=== PATIENT | female | born 1995 | race Caucasian/White ===

== ENCOUNTER 2018-09-14 10:35 | Outpatient (CLI) | payer BC ==
[~2018-09-14] VITALS: Ht 160 cm; Wt 72.3 kg
[2018-09-14 10:55] VITALS: Ht 160 cm; Wt 72.3 kg
[2018-09-14 10:56] VITALS: BP 139/87; PULSE 110; RESP 20
[2018-09-14] MEDS ORDERED: MTF1000T PO (11:59)
[2018-09-14] MEDS ORDERED: FERR134T PO (11:59)
[2018-09-14] MEDS ORDERED: PREN-93 PO (11:59)
--- NOTE | 2018-09-14 13:30 | TRIAGE ---
OB Triage Datetime Report Generated by CPN: 09/14/2018 13:29 Datetime: 09/14/2018 11:41 Bedside Blood Glucose: 114 Datetime: 09/14/2018 11:34 Stage of : OB Triage Assessment Type: Triage Maternal Assessment Level of Consciousness: Fully Conscious DTR's/Clonus: DTRs 2+; No Clonus Headache: Denies Blurred Vision: No Respiratory Effort: Unlabored; Regular Rhythm; Equal Expansion Breath Sounds, Left: Clear and Equal Breath Sounds, Right: Clear and Equal Nausea/Vomiting: Denies RUQ Epigastric Pain: Denies Facial Edema: None Temperature Route: Axillary Fall Risk Assessment History of Falling: (0) No Secondary Diagnosis: (0) No Ambulatory Aid: (0) Bedrest/Nurse Assist IV Therapy: (0) No Gait: (0) Normal/Bedrest/Immobile Mental Status: (0) Oriented to Own Ability Fall Score: 0 Fall Risk Score Definition: No Risk: No action required Labor Evaluation Monitor Mode: External Heart Rate FHR Baseline Rate: 125 Monitor Mode: External US Pain Assessment Pain Scale: 5 Pain Presence: Intermittent Pain Type: Cramping Pain Location: Abdomen Pain Goal: 5 Pain Relief Measures: Comfort Measures Vaginal Exam Dilatation (cms): 2.0 Effacement (%): 30 Station: -2 Exam By: s badgett rn Membrane Status: Intact Nitrazine: Positive Datetime: 09/14/2018 11:07 EGA: 37.2 Datetime: 09/14/2018 10:28 Time of Arrival: 09/14/2018 10:28 Arrived By: Ambulatory Arrived From: Home Chief Complaint: labor Movement: Present Contractions: Regular Time Contractions Began: 09/14/2018 08:00 Rupture of Membranes: Unsure Vaginal Bleeding: Normal Show Vaginal Discharge: Present Recent Sexual Intercouse: Denies Abdominal Trauma: Not Applicable Patient Complaints: Contractions Additional Patient Complaints: leaking Time Provider Notified: 09/14/2018 11:15 Provider Notified: luz maria Initial Plan: nst, v/e, call ,
--- NOTE | 2018-09-14 17:05 | PN ---
Triage Information Date/Time 09/14/1804/23/1700 Reason for visit: Uterine contractions Weeks of Gestation 37w2d /Para primigravida Diabetes: gestational Diabetes management: oral agent Additional information on metformin BID last nite BS 120 Objective Vital Signs Date Temp Pulse Resp B/P (MAP) Pulse Ox O2 O2 Flow FiO2 Time Delivery Rate 09/14/18 97.4 110 20 139/87 Room Air 10:56 (104) Heart Rate: 120's Heart Rate Comments CAT I tracing Exam post no change ROM plus neg Results/Medications Results 24 hrs Laboratory Tests Test 09/14/18 11:00 09/14/18 11:02 09/14/18 11:40 Urine Color YELLOW Urine Clarity SLIGHTLY CLOUDY A Urine pH 5.0 Urine Specific [place] 1.026 Urine Ketones NEGATIVE Urine Nitrite NEGATIVE Urine Bilirubin NEGATIVE Urine Urobilinogen NEGATIVE Urine Leukocyte Esterase NEGATIVE Urine Microscopic RBC 3 Urine Microscopic WBC 18 H Urine Squamous FEW Epithelial Cells Urine Bacteria FEW A Urine Mucus FEW A Urine Hemoglobin NEGATIVE Urine Glucose NEGATIVE Urine Total Protein 3+ H Urine Opiates Screen Negative Urine Barbiturates Negative Urine Amphetamines Screen Negative Urine Benzodiazepines Screen Negative Urine Cocaine Screen Negative Urine Cannabinoids Negative Bedside Glucose 114 Imaging Results BPP 8 LIANET 14.3 EFW 3211gm 62.3% Disposition: Discharge Assessment/Plan IUP 37w2d early labor plan RTH prn with routine labor instructions SHAN VÁSQUEZ MD September 14, 2018 17:05
== END 2018-09-14 13:15 | disposition home or self-care (01) ==
LOC: OBT 10:35 → L-D 10:36 → OBT 13:15
PROVIDERS: ATTEND Obstetrics & Gynecology
DX: O60.03 Preterm labor without delivery, third trimester (principal); Z3A.37 37 weeks gestation of pregnancy
CPT/HCPCS: 76815; 76818; 80307; 81001; 82962

== ENCOUNTER 2018-09-14 20:43 | Inpatient (IN) | payer BC ==
[~2018-09-14] VITALS: Ht 160 cm; Wt 72.3 kg
[~2018-09-14 20:43] MED LIST: FERR134T PO; MTF1000T PO; PREN-93 PO
[2018-09-14 20:57] VITALS: Ht 160 cm; Wt 72.3 kg
[2018-09-14] MEDS ORDERED: OXYTOCIN 30 UNITS/LR 500 ML IV PRN (21:30)
[2018-09-14] MEDS ORDERED: CARBOPROST 250 MCG INJ IM PRN (21:30)
[2018-09-14] MEDS ORDERED: MISOPROSTOL 200 MCG TAB PR PRN (21:30)
[2018-09-14] MEDS ORDERED: LIDOCAINE 1% (MPF) 30 ML INJ INJ PRN (21:30)
[2018-09-14] MEDS ORDERED: MINERAL OIL LIGHT 10 ML VIAL TOP PRN (21:30)
[2018-09-14] MEDS ORDERED: IBUPROFEN 600 MG TAB PO PRN (21:30)
[2018-09-14] MEDS ORDERED: OXYTOCIN 30 UNITS/LR 500 ML IV SCH ×3 (21:30)
[2018-09-14] MEDS ORDERED: METHYLERGONOVINE 0.2 MG INJ IM PRN (21:30)
[2018-09-14] MEDS ORDERED: GLUCOSE GEL 15 GRAM TUBE BUCCAL PRN (22:00)
[2018-09-14] MEDS ORDERED: GLUCAGON 1 MG INJ IM PRN (22:00)
[2018-09-14] MEDS ORDERED: DEXTROSE 50% 50 ML SYRINGE IV PRN ×2 (22:00)
[2018-09-14] MEDS ORDERED: GLUCOSE GEL 15 GRAM TUBE PO PRN ×2 (22:00)
[2018-09-14] MEDS: LACTATED RINGER'S 1,000 ML IV SCH ×2 (22:07→23:29)
--- NOTE | 2018-09-14 22:50 | PREAC ---
Date/Time of Note Date/Time of Note DATE: 09/14/18 TIME: 22:47 Anesthesia Eval and Record Evaluation Time Pre-Procedure Interview DATE: 09/14/18 TIME: 22:47 Age 23 Sex female NPO: 8 hrs Preoperative diagnosis intrauterine Planned procedure labor epidural Past Medical History Past Medical History: Includes : : (1), Para: (0), Gestational age: (37.2), Gestational di abetes Surgery & Anesthesia Issues No known issue Meds Anticoagulation: No Beta Ryan within 24 hr: No Reason Beta Ryan not given: Pt. not on B-Ryan Reported Medications Metformin* (Glucophage*) 1,000 Mg Tablet, 1000 MG PO BID PRN for elevated sugars, #60 TAB 09/14/18 Ferrous Sulfate (Iron) 134 Mg Tablet, 134 MG PO BID, TAB 09/14/18 Vit No.124/Iron/FA ( Vitamin Tablet) 1 Each Tablet, 1 EACH PO BID, TAB 09/14/18 Current Medications Lactated Ringer's 1,000 ml @ 125 mls/hr Q8H IV Last administered on 09/14/18at 22:07; Admin Dose 125 MLS/HR; Start 09/14/18 at 21:20 Lidocaine (Xylocaine 1% (Mpf)) 30 ml ONCE PRN INJ .EPISIOTOMY; Start 09/14/18 at 21:30 Oxytocin/Lactated Ringer's 500 ml @ 500 mls/hr ONCE POST IV ; Start 09/14/18 at 21:30 Oxytocin/Lactated Ringer's 500 ml @ 125 mls/hr POST IV ; Start 09/14/18 at 21:30 Ibuprofen (Motrin) 600 mg ONCE PRN PO .PAIN 1-5; Start 09/14/18 at 21:30 Oxytocin/Lactated Ringer's 500 ml @ 0 mls/hr ONCE PRN IV .VAGINAL BLEEDING; Start 09/14/18 at 21:30 Methylergonovine Maleate (Methergine) 0.2 mg ONCE PRN IM .VAGINAL BLEEDING; Start 09/14/18 at 21:30 Carboprost Tromethamine (Hemabate) 250 mcg ONCE PRN IM .VAGINAL BLEEDING; Start 09/14/18 at 21:30 Misoprostol (Cytotec) 1,000 mcg ONCE PRN DC .VAGINAL BLEEDING; Start 09/14/18 at 21:30 Oxytocin/Lactated Ringer's 500 ml @ 0 mls/hr FOR AUGMENTATION IV ; Start 09/14/18 at 21:30 Mineral Oil (Muri-Lube) 10 ml ONCE PRN TOP vaginal delivery; Start 09/14/18 at 21:30; Stop 09/14/18 at 23:59 Insulin Aspart (Novolog Insulin Pen) NOVOLOG *MILD* ALGORI... Q4 SC ; Start 09/15/18 at 01:00 Miscellaneous Information 1 ea NOTE XX ; Start 09/14/18 at 22:00 Glucose (Glutose) 15 gm Q15M PRN PO DECREASED GLUCOSE; Start 09/14/18 at 22:00 Glucose (Glutose) 22.5 gm Q15M PRN PO DECREASED GLUCOSE; Start 09/14/18 at 22:00 Dextrose (D50w Syringe) 25 ml Q15M PRN IV DECREASED GLUCOSE; Start 09/14/18 at 22:00 Dextrose (D50w Syringe) 50 ml Q15M PRN IV DECREASED GLUCOSE; Start 09/14/18 at 22:00 Glucagon (Glucagen) 1 mg Q15M PRN IM DECREASED GLUCOSE; Start 09/14/18 at 22:00 Glucose (Glutose) 15 gm Q15M PRN BUCCAL DECREASED GLUCOSE; Start 09/14/18 at 22:00 Meds reviewed: Yes Allergies Coded Allergies: No Known Allergy (Unverified , 09/14/18) Allergies Reviewed: Yes Labs/Studies Labs Reviewed: Reviewed by anesthesiologist (pending and will be reviewed ) test: N/A Pre-procedure Exam Airway: Adequate mouth opening, Adequate thyromental dist Mallampati: Mallampati II Teeth: Normal Lung: Normal Heart: Normal ASA Physical Status ASA physical status: 2 Emergency: None Planned Anesthetic Neuraxial: Epidural Planned Pain Management Epidural, Parenteral pain med Pre-operative Attestations Prior to commencing anesthesia and surgery, the patient was re-evaluated, there was verification of: *The patient's identity *The results of appropriate recent lab work and preoperative vital signs *The above evaluation not changing prior to induction *Anesthetic plan, risk benefits, alternative and complications discussed with patient/family; questions answered; patient/family understands, accepts and wi shes to proceed. MILAGROS COLES MD September 14, 2018 22:50
[2018-09-14] MEDS ORDERED: FENTAnyl 2MCG/ML-ROPIV 0.2% 100 ML ONE (23:33)
[2018-09-15] VITALS (13 sets, daily range): BP systolic 121–137; BP diastolic 73–95; PULSE 83–94; RESP 16–24
--- NOTE | 2018-09-15 00:12 | PAC ---
Date/Time of Note Date/Time of Note DATE: 09/15/18 TIME: 00:12 Post-Anesthesia Notes Post-Anesthesia Note Activity: WNL Respiratory function: WNL Cardiovascular function: WNL Mental status: Baseline Pain reasonably controlled: Yes Hydration appropriate: Yes Nausea/Vomiting absent: Yes Comments BP: 128/78 HR: 82 RR: 16 T: 98 SaO2: 99% MILAGROS COLES MD September 15, 2018 00:12
[2018-09-15] MEDS ORDERED: INSULIN ASPART [NOVOLOG] 3 ML PEN SC SCH ×2 (01:00→18:05)
[2018-09-15] MEDS ORDERED: DEXTROSE 5%-LR 1,000 ML IV SCH (02:55)
[2018-09-15] MEDS ORDERED: LACTATED RINGER'S 1,000 ML IV SCH (02:55)
[2018-09-15] MEDS ORDERED: MINERAL OIL LIGHT 10 ML VIAL TOP ONE (06:00)
--- NOTE | 2018-09-15 06:07 | TRIAGE ---
OB Triage Datetime Report Generated by CPN: 09/15/2018 06:07 Datetime: 09/15/2018 05:18 Stage of : Labor Dilatation (cms): 10.0 Effacement (%): 100 Station: 0 Exam By: Datetime: 09/15/2018 05:15 Stage of : Labor Datetime: 09/15/2018 04:58 Stage of : Labor Frequency: 2-4.5 Monitor Mode: External Duration (sec)2399: 60-100 Pattern: Normal: <= 5 Contractions in 10 Minutes Resting Tone Pray: Relaxed FHR Baseline Rate: 135 Monitor Mode: External US Variability: Moderate 6-25 bpm Accelerations: 15X15 Decelerations: Early; Variable Category: Category I Datetime: 09/15/2018 04:30 Stage of : Labor Frequency: 2-4.5 Monitor Mode: External Duration (sec)2399: 60-100 Pattern: Normal: <= 5 Contractions in 10 Minutes Resting Tone Pray: Relaxed FHR Baseline Rate: 145 Monitor Mode: External US Variability: Moderate 6-25 bpm Accelerations: 15X15 Decelerations: Early; Variable Category: Category II Datetime: 09/15/2018 04:15 Dilatation (cms): 9.0 Effacement (%): 100 Station: -1 Exam By: FLOYD Membrane Status: Ruptured Membranes Rupture Method: Spontaneous Amniotic Fluid Color: Clear Amniotic Fluid Amount: Moderate Amniotic Fluid Odor: Foul Datetime: 09/15/2018 04:00 Stage of : Labor Frequency: 2-4 Monitor Mode: External Duration (sec)2399: 60-80 Pattern: Normal: <= 5 Contractions in 10 Minutes FHR Baseline Rate: 130 Monitor Mode: External US Variability: Moderate 6-25 bpm Accelerations: 15X15 Decelerations: Early Category: Category I Datetime: 09/15/2018 03:30 Frequency: 2-3 Monitor Mode: External Duration (sec)2399: 60-80 Quality: Moderate Pattern: Normal: <= 5 Contractions in 10 Minutes Resting Tone Pray: Relaxed FHR Baseline Rate: 125 Monitor Mode: External US Variability: Moderate 6-25 bpm Accelerations: 15X15 Decelerations: None Category: Category I Datetime: 09/15/2018 03:00 Frequency: 3-4 Monitor Mode: External Duration (sec)2399: 50-90 Quality: Moderate Pattern: Normal: <= 5 Contractions in 10 Minutes Resting Tone Pray: Relaxed FHR Baseline Rate: 130 Monitor Mode: External US FHR Baseline Changes: No Baseline Change Variability: Moderate 6-25 bpm Accelerations: 15X15 Decelerations: None Category: Category I Datetime: 09/15/2018 02:59 Bedside Blood Glucose: 68 Datetime: 09/15/2018 02:30 Frequency: 2-4 Monitor Mode: External Duration (sec)2399: 60-90 Quality: Moderate Pattern: Normal: <= 5 Contractions in 10 Minutes Resting Tone Pray: Relaxed FHR Baseline Rate: 125 Monitor Mode: External US Variability: Moderate 6-25 bpm Accelerations: 15X15 Decelerations: None Category: Category I Datetime: 09/15/2018 02:00 Frequency: 2-4 Monitor Mode: External Duration (sec)2399: 60-90 Quality: Moderate Pattern: Normal: <= 5 Contractions in 10 Minutes Resting Tone Pray: Relaxed FHR Baseline Rate: 125 Monitor Mode: External US Variability: Moderate 6-25 bpm Accelerations: 15X15 Decelerations: None Category: Category I Datetime: 09/15/2018 01:30 Frequency: 2-5 Monitor Mode: External Duration (sec)2399: 60-80 Quality: Moderate Pattern: Normal: <= 5 Contractions in 10 Minutes Resting Tone Pray: Relaxed FHR Baseline Rate: 125 Monitor Mode: External US Variability: Moderate 6-25 bpm Accelerations: 15X15 Decelerations: None Category: Category I Datetime: 09/15/2018 01:00 Frequency: 2-5 Monitor Mode: External Duration (sec)2399: 60-90 Quality: Moderate Pattern: Normal: <= 5 Contractions in 10 Minutes Resting Tone Pray: Relaxed FHR Baseline Rate: 120 Monitor Mode: External US Variability: Marked >25 bpm Accelerations: 15X15 Decelerations: None Category: Category I Datetime: 09/15/2018 00:30 Frequency: 3-5 Monitor Mode: External Duration (sec)2399: 60-80 Quality: Moderate Pattern: Normal: <= 5 Contractions in 10 Minutes Resting Tone Pray: Relaxed FHR Baseline Rate: 125 Monitor Mode: External US Variability: Moderate 6-25 bpm Accelerations: 15X15 Decelerations: None Category: Category I Datetime: 09/15/2018 00:22 Temperature Route: Oral Datetime: 09/15/2018 00:11 Dilatation (cms): 4.0 Effacement (%): 80 Station: -3 Exam By: NITIN Vaginal Bleeding: Normal Show Cervix, Consistency: Soft Cervix, Position: Posterior Presentation 'A': Cephalic Datetime: 09/15/2018 00:06 Pain Scale: 1 Pain Presence: Intermittent Pain Location: Abdomen Pain Goal: 2 Pain Relief Measures: Epidural Given Datetime: 09/14/2018 23:30 Frequency: 2-5 Monitor Mode: External Duration (sec)2399: 60-80 Quality: Moderate Pattern: Normal: <= 5 Contractions in 10 Minutes Resting Tone Pray: Relaxed FHR Baseline Rate: 125 Monitor Mode: External US Variability: Moderate 6-25 bpm Accelerations: 15X15 Decelerations: None Category: Category I Datetime: 09/14/2018 23:00 Frequency: 2-5 Monitor Mode: External Duration (sec)2399: 60-80 Quality: Moderate Pattern: Normal: <= 5 Contractions in 10 Minutes Resting Tone Pray: Relaxed FHR Baseline Rate: 125 Monitor Mode: External US Variability: Moderate 6-25 bpm Accelerations: 15X15 Decelerations: None Category: Category I Datetime: 09/14/2018 22:40 Assessment Type: Ongoing Assessment Level of Consciousness: Fully Conscious DTR's/Clonus: DTRs 2+; No Clonus Headache: Denies Blurred Vision: No Respiratory Effort: Unlabored; Regular Rhythm; Equal Expansion Breath Sounds, Left: Clear and Equal Breath Sounds, Right: Clear and Equal Nausea/Vomiting: Denies RUQ Epigastric Pain: Denies Lower Extremities Edema: None Degree: None Upper Extremities Edema: None Degree: None Facial Edema: None History of Falling: (0) No Secondary Diagnosis: (0) No Ambulatory Aid: (0) Bedrest/Nurse Assist IV Therapy: (0) No Gait: (0) Normal/Bedrest/Immobile Mental Status: (0) Oriented to Own Ability Fall Score: 0 Fall Risk Score Definition: No Risk: No action required Datetime: 09/14/2018 22:00 Stage of : Labor Assessment Type: Admission Assessment Time of Arrival: 09/15/2018 20:35 EGA: 37.3 Arrived By: Ambulatory Arrived From: Home Chief Complaint: CONTRACTIONS Movement: Present Contractions: Regular Time Contractions Began: 09/14/2018 08:00 Contractions: 3-5 Rupture of Membranes: Denies Vaginal Bleeding: None Vaginal Discharge: Denies Recent Sexual Intercouse: Denies Abdominal Trauma: Not Applicable Patient Complaints: Contractions Time Provider Notified: 09/14/2018 21:10 Provider Notified: DR. ALMEIDA Initial Plan: EFM, SVE, CALL OB Level of Consciousness: Fully Conscious DTR's/Clonus: DTRs 2+; No Clonus Headache: Denies Blurred Vision: No Respiratory Effort: Unlabored; Regular Rhythm; Equal Expansion Breath Sounds, Left: Clear and Equal Breath Sounds, Right: Clear and Equal Nausea/Vomiting: Denies RUQ Epigastric Pain: Denies Lower Extremities Edema: None Degree: None Upper Extremities Edema: None Degree: None Facial Edema: None History of Falling: (0) No Secondary Diagnosis: (0) No Ambulatory Aid: (0) Bedrest/Nurse Assist IV Therapy: (0) No Gait: (0) Normal/Bedrest/Immobile Mental Status: (0) Oriented to Own Ability Fall Score: 0 Fall Risk Score Definition: No Risk: No action required Frequency: 2-5 Duration (sec)2399: 60-80 Quality: Moderate Pattern: Normal: <= 5 Contractions in 10 Minutes Resting Tone Pray: Relaxed FHR Baseline Rate: 120 Variability: Moderate 6-25 bpm Accelerations: 15X15 Decelerations: None Category: Category I Pain Scale: 9 Pain Presence: Intermittent Pain Type: Contraction Pain Location: Abdomen Pain Goal: 3 Dilatation (cms): 3.5 Effacement (%): 80 Station: -3 Membrane Status: Bulging Datetime: 09/14/2018 21:05 Dilatation (cms): 3.5 Effacement (%): 80 Station: -3 Exam By: Vannesa GOETZ Membrane Status: Bulging Vaginal Bleeding: Normal Show Cervix, Consistency: Soft Cervix, Position: Midposition Presentation 'A': Cephalic Datetime: 09/14/2018 20:45 Stage of : OB Triage Level of Consciousness: Fully Conscious DTR's/Clonus: DTRs 2+; No Clonus Headache: Denies Blurred Vision: No Respiratory Effort: Unlabored; Regular Rhythm; Equal Expansion Breath Sounds, Left: Clear and Equal Breath Sounds, Right: Clear and Equal Nausea/Vomiting: Denies RUQ Epigastric Pain: Denies Lower Extremities Edema: None Degree: None Upper Extremities Edema: None Degree: None Facial Edema: None Temperature Route: Oral History of Falling: (0) No Secondary Diagnosis: (0) No Ambulatory Aid: (0) Bedrest/Nurse Assist IV Therapy: (0) No Gait: (0) Normal/Bedrest/Immobile Mental Status: (0) Oriented to Own Ability Fall Score: 0 Fall Risk Score Definition: No Risk: No action required Pain Scale: 8 Pain Presence: Intermittent Pain Type: Contraction Pain Location: Abdomen Datetime: 09/14/2018 13:25 Stage of : OB Triage Assessment Type: Triage Level of Consciousness: Fully Conscious DTR's/Clonus: DTRs 2+; No Clonus Headache: Denies Blurred Vision: No Respiratory Effort: Unlabored; Regular Rhythm; Equal Expansion Breath Sounds, Left: Clear and Equal Breath Sounds, Right: Clear and Equal Nausea/Vomiting: Denies RUQ Epigastric Pain: Denies Facial Edema: None Temperature Route: Axillary History of Falling: (0) No Secondary Diagnosis: (0) No Ambulatory Aid: (0) Bedrest/Nurse Assist IV Therapy: (0) No Gait: (0) Normal/Bedrest/Immobile Mental Status: (0) Oriented to Own Ability Fall Score: 0 Fall Risk Score Definition: No Risk: No action required Datetime: 09/14/2018 13:00 Level of Consciousness: Fully Conscious DTR's/Clonus: DTRs 2+ Headache: Denies Blurred Vision: No Respiratory Effort: Unlabored Nausea/Vomiting: Denies RUQ Epigastric Pain: Denies Facial Edema: None Frequency: 5-7 Monitor Mode: External Duration (sec)2399: 10-30 Quality: Mild Resting Tone Pray: Relaxed FHR Baseline Rate: 125 Monitor Mode: External US Variability: Moderate 6-25 bpm Accelerations: 15X15 Decelerations: None Category: Category I Pain Scale: 5 Pain Presence: Intermittent Pain Type: Cramping Pain Location: Abdomen Pain Goal: 5 Pain Relief Measures: Comfort Measures Pain Assessment Comments: "they aren't getting any harder" Dilatation (cms): 3.0 Effacement (%): 70 Station: -2 Exam By: patricia levi rn Membrane Status: Intact Vaginal Bleeding: Normal Show Cervix, Consistency: Firm Cervix, Position: Posterior Presentation 'A': Cephalic Datetime: 09/14/2018 11:58 Level of Consciousness: Fully Conscious DTR's/Clonus: DTRs 2+ Headache: Denies Blurred Vision: No Respiratory Effort: Unlabored Nausea/Vomiting: Denies RUQ Epigastric Pain: Denies Facial Edema: None Frequency: 5-8 Monitor Mode: External Duration (sec)2399: 30-50 Quality: Mild Pattern: Normal: <= 5 Contractions in 10 Minutes Resting Tone Pray: Relaxed FHR Baseline Rate: 135 Monitor Mode: External US Variability: Moderate 6-25 bpm Accelerations: 15X15 Decelerations: None Category: Category I Pain Scale: 5 Pain Presence: Intermittent Pain Type: Contraction Pain Location: Abdomen Pain Goal: 5 Pain Relief Measures: Comfort Measures Pain Assessment Comments: no grimace, talking through uc's Membrane Status: Intact Datetime: 09/14/2018 11:34 Fall Score: 0 Fall Risk Score Definition: No Risk: No action required Datetime: 09/14/2018 11:07 Time of Arrival: 09/14/2018 22:00 EGA: 37.2 Arrived By: Wheelchair Arrived From: TRIAGE Datetime: 09/14/2018 10:28 Initial Plan: nst, v/e, call dr, u/s
[2018-09-15] MEDS ORDERED: MAGNESIUM SULFATE 20 GM/500 ML 500 ML IV SCH (07:09)
[2018-09-15] MEDS ORDERED: MAGNESIUM SULFATE 4 GM/100 ML 100 ML IV SCH (07:30)
--- NOTE | 2018-09-15 07:42 | LDN ---
Date/Time of Note Date/Time of Note DATE: 09/15/18 TIME: 07:35 Delivery Summary of normal male infant Weeks of Gestation 37w3d Placenta Delivered: Spontaneously, Intact & Complete Meconium: none Episiotomy: Yes Indication for episiotomy expected laceraion Perineal laceration: 0 Laceration repair: RMLE 00ch gut Anesthesia type: Epidural Estimated blood loss: 100 Sponge & Needle done & correct: Yes All needle counts correct: Yes Any foreign bodies felt in the: No Delivery Information Sex Infant Sex: male Apgars 1 Minute: 8 5 Minute: 9 Suctioning Nose & mouth suctioned at renetta: Yes Delee suction performed: Yes Umbilical Cord Umbilical cord with: 3 Vessels Cord presentations: no nuchal cord Cord Blood was obtained: Yes Mother & Baby Disposition Disposition Mom & Baby to Maternity; Good: Yes Mom transferred to: Other Baby to NICU: No SHAN VÁSQUEZ MD September 15, 2018 07:42
--- NOTE | 2018-09-15 08:31 | HP ---
Date/Time of Note Date/Time of Note DATE: 09/15/18 TIME: 08:14 OB - History Hx of Present Free Text/Dictation 23y.o primigravida at 37w2d with UC's 3-5min with intact membrane. VE 3-4/80%/-3 her care was initiated late at 29w with unknown LMP DM since 2016 HbA1C 7.0 been on metformin BID last random BS 120 at 2200 09/13/18 UDS pos for ethanol GBS neg admitted for expectant management. Chief Complaint: uc's Estimated Due Date: October 03, 2018 : 1 Para: 0 Spontaneous : 0 Therapeutic : 0 Care: Limited Care Ultrasounds: Normal mid trimester US Obstetrical Complications: Other Medical Complications: Gastrointestinal (DMII) Past Family/Social History * Past Medical, Surgical, Family and Obstetric Histories reviewed from chart. Blood Type: O+ Rubella: not immune RPR/VDRL: Negative GBS Status: Negative HBsAG: Negative OB Admission Exam Physical Exam HEENT: WNL Heart: Rhythm Normal Lungs: Clear, Equal Abdomen: WNL Extremities: Normal Reflexes: Normal Cervical Dilatation: other (3-4) Station: Other (80%) Membranes: Intact Amniotic Fluid: Unevaluable Heart Rate: 120's Accelerations: Accelerations Present Decelerations: No Decelerations Varibility: Moderate Contractions on Admission: < 5 Minutes Apart Intensity: Moderate Last 72 hourBlood Glucose Bedside Glucose - 72 Hours Test 09/14/18 22:49 09/15/18 02:50 Bedside Glucose 84 mg/dL (70-220) 68 mg/dL (70-220) L Last 72 hours Lab Results CBC & BMP 09/14/18 22:00 OB Assessment/Plan Reason for admission: active labor Other Assessment: IUP 37w2d Plan: Expectant Management SHAN VÁSQUEZ MD September 15, 2018 08:28
[2018-09-15] MEDS ORDERED: BENZOCAINE 20% 56 ML SPRAY TOP PRN (10:30)
[2018-09-15] MEDS ORDERED: LANOLIN HPA 1 PKT TOP PRN (10:30)
[2018-09-15] MEDS ORDERED: ZOLPIDEM 5 MG TAB PO PRN (10:30)
[2018-09-15] MEDS ORDERED: LABETALOL HCL 20MG INJ IV ONE (10:30)
[2018-09-15] MEDS ORDERED: METHYLERGONOVINE 0.2 MG INJ IM PRN (10:30)
[2018-09-15] MEDS ORDERED: CARBOPROST 250 MCG INJ IM PRN (10:30)
[2018-09-15] MEDS ORDERED: MISOPROSTOL 200 MCG TAB PR PRN (10:30)
[2018-09-15] MEDS ORDERED: OXYTOCIN 30 UNITS/LR 500 ML IV PRN (10:30)
[2018-09-15] MEDS ORDERED: WITCH HAZEL/GLYCERIN PAD PR PRN (10:30)
[2018-09-15] MEDS: OXYCODONE/ASPIRIN (4.88/325) TAB PO PRN ×2 (10:38→16:01)
[2018-09-15] MEDS: SENNA/DOCUSATE NA (8.6MG/50MG) TAB PO SCH ×2 (12:15→20:58)
[2018-09-15] MEDS: IBUPROFEN 600 MG TAB PO SCH ×2 (12:15→18:04)
[2018-09-15] MEDS: MAGNESIUM SULFATE 20 GM/500 ML 500 ML IV SCH ×2 (13:00→19:00)
[2018-09-15] MEDS ORDERED: GLUCAGON 1 MG INJ IM PRN (13:30)
[2018-09-15] MEDS ORDERED: GLUCOSE GEL 15 GRAM TUBE BUCCAL PRN (13:30)
[2018-09-15] MEDS ORDERED: DEXTROSE 50% 50 ML SYRINGE IV PRN ×2 (13:30)
[2018-09-15] MEDS ORDERED: GLUCOSE GEL 15 GRAM TUBE PO PRN ×2 (13:30)
[2018-09-15] MEDS: ACCU-CHEK XX SCH ×2 (15:30→20:05)
[2018-09-15] MEDS: metFORMIN 500 MG TAB PO SCH (16:21)
[2018-09-15] MEDS: LABETALOL 200 MG TAB PO SCH (20:58)
[2018-09-16] VITALS (12 sets, daily range): BP systolic 107–126; BP diastolic 64–93; PULSE 70–87; RESP 18–19
[2018-09-16] MEDS: IBUPROFEN 600 MG TAB PO SCH ×4 (00:14→18:15)
[2018-09-16] MEDS: LACTATED RINGER'S 1,000 ML IV SCH ×2 (02:11→15:20)
[2018-09-16] MEDS: MAGNESIUM SULFATE 20 GM/500 ML 500 ML IV SCH (06:31)
[2018-09-16] MEDS: ACCU-CHEK XX SCH ×4 (07:30→20:05)
[2018-09-16] MEDS: LABETALOL 200 MG TAB PO SCH ×2 (09:07→20:53)
[2018-09-16] MEDS: SENNA/DOCUSATE NA (8.6MG/50MG) TAB PO SCH ×2 (09:07→20:53)
[2018-09-16] MEDS: metFORMIN 500 MG TAB PO SCH ×2 (09:07→18:15)
--- NOTE | 2018-09-16 16:15 | PN ---
Date/Time of Note Date/Time of Note DATE: 09/16/18 TIME: 16:13 Assessment/Plan VTE Prophylaxis Risk score (from Ns)>0 risk: 1 SCD applied (from Ns): Yes Pharmacological prophylaxis: NA/contraindicated Pharm contraindication: low risk/ambulating Lines/Catheters IV Catheter Type (from Nrs): Saline Lock Assessment/Plan Assessment/Plan POST DAY 1 HOME TOMORROW RETURN TO CLINIC IN 2 WEEKS CONTINUE WITH VITAMINS OD AND FERROUS SULFATE PO TID DIET ADVISED COUNSELED INSTRUCTED CALL OFFICE IF THERE IS ANY PROBLEMS OR CONCERN Result Diagram: 09/16/18 0709 09/15/18 0817 Results 24hrs Laboratory Tests Test 09/15/18 17:58 09/15/18 18:33 09/15/18 20:36 09/16/18 00:25 Bedside Glucose 135 130 Magnesium Level 6.0 *H 6.0 *H Test 09/16/18 06:36 09/16/18 07:09 09/16/18 08:20 09/16/18 11:48 Lab Scanned Report REFERENCE LAB White Blood Count 10.0 # Red Blood Count 4.24 Hemoglobin 11.1 L Hematocrit 34.0 L Mean Corpuscular 80.2 L Volume Mean Corpuscular 26.2 L Hemoglobin Mean Corpuscular 32.6 Hemoglobin Concent Red Cell 14.7 H Distribution Width Platelet Count 159 Mean Platelet 12.3 H Volume Immature 0.300 Granulocytes % Neutrophils % 67.4 Lymphocytes % 23.7 Monocytes % 7.6 Eosinophils % 0.7 Basophils % 0.3 Nucleated Red 0.0 Blood Cells % Immature 0.030 Granulocytes # Neutrophils # 6.7 Lymphocytes # 2.4 Monocytes # 0.8 Eosinophils # 0.1 Basophils # 0.0 Nucleated Red 0.0 Blood Cells # Magnesium Level 5.9 *H Bedside Glucose 82 121 Test 09/16/18 15:47 Bedside Glucose 105 Subjective 24 Hr Interval Summary Free Text/Dictation FEELS GOOD, GOOD URINE OUTPUT, GOOD BOWEL MOVEMENT Exam/Review of Systems Exam Vitals Vital Signs Date Temp Pulse Resp B/P (MAP) Pulse Ox O2 O2 Flow FiO2 Time Delivery Rate 09/16/18 97.8 74 18 125/82 Room Air 08:00 (96) Intake and Output 09/15/18 09/15/18 09/16/18 1515:00 23:00 07:00 IntakeIntake Total 150 ml 1190 ml 900 ml OutputOutput Total 1000 ml 2800 ml 2500 ml BalanceBalance -850 ml -1610 ml -1600 ml Exam VITAL SIGNS STABLE: YES AFEBRILE: YES BREAST NOT ENGORGED, NON-TENDER, NO APPRECIABLE MASS: YES LUNGS CLEAR, NO RALES, WHEEZES, RHONCHI: YES SINUS RHYTHM WITHOUT MURMUR: YES ABDOMEN: NON-TENDER FUNDUS: BELOW UMBILICUS BOWEL SOUNDS: PRESENT UTERUS: FIRM EPISIOTOMY HEALING WELL: YES LOCHIA: LIGHT DEEP TENDON REFLEXES: 0 EXTREMITIES: NO CALF TENDERNESS EDEMA SCALE: NONE Results Results 24hrs Laboratory Tests Test 09/15/18 17:58 09/15/18 18:33 09/15/18 20:36 09/16/18 00:25 Bedside Glucose 135 130 Magnesium Level 6.0 *H 6.0 *H Test 09/16/18 06:36 09/16/18 07:09 09/16/18 08:20 09/16/18 11:48 Lab Scanned Report REFERENCE LAB White Blood Count 10.0 # Red Blood Count 4.24 Hemoglobin 11.1 L Hematocrit 34.0 L Mean Corpuscular 80.2 L Volume Mean Corpuscular 26.2 L Hemoglobin Mean Corpuscular 32.6 Hemoglobin Concent Red Cell 14.7 H Distribution Width Platelet Count 159 Mean Platelet 12.3 H Volume Immature 0.300 Granulocytes % Neutrophils % 67.4 Lymphocytes % 23.7 Monocytes % 7.6 Eosinophils % 0.7 Basophils % 0.3 Nucleated Red 0.0 Blood Cells % Immature 0.030 Granulocytes # Neutrophils # 6.7 Lymphocytes # 2.4 Monocytes # 0.8 Eosinophils # 0.1 Basophils # 0.0 Nucleated Red 0.0 Blood Cells # Magnesium Level 5.9 *H Bedside Glucose 82 121 Test 09/16/18 15:47 Bedside Glucose 105 Medications Medication Current Medications Ibuprofen (Motrin) 600 mg Q6 PO Last administered on 09/16/18at 12:17; Admin Dose 600 MG; Start 09/15/18 at 12:00 Zolpidem Tartrate (Ambien) 5 mg QHS PRN PO .INSOMNIA; Start 09/15/18 at 10:30 Senna/Docusate Sodium (Senokot-S) 1 tab BID PO Last administered on 09/16/18at 09:07; Admin Dose 1 TAB; Start 09/15/18 at 10:30 Witch Dasia/ Glycerin (Tucks Pads) 1 pad BEDSIDE MEDICATION PRN FL .HEMORRHOID/EPISIOTOMY PAIN Last administered on 09/16/18 10:20; Admin Dose 40 PAD; Start 09/15/18 at 10:30 Benzocaine (Dermoplast [place]) 1 spray BEDSIDE MEDICATION PRN TOP .HEMMORHOID/EPISIOTOMY PAIN Last administered on 09/16/18 10:19; Admin Dose 56 SPRAY; Start 09/15/18 at 10:30 Lanolin (Lanolin Hpa) 1 applic BEDSIDE MEDICATION PRN TOP .NIPPLES Last adm inistered on 09/16/18 10:19; Admin Dose 1 APPLIC; Start 09/15/18 at 10:30 Diphtheria/ Tetanus/Acell Pertussis (Adacel) 0.5 ml ONCE ONCE IM* ; Start 09/17/18 at 09:00; Stop 09/17/18 at 09:01 Oxytocin/Lactated Ringer's 500 ml @ 0 mls/hr ONCE PRN IV .VAGINAL BLEEDING; Start 09/15/18 at 10:30 Methylergonovine Maleate (Methergine) 0.2 mg ONCE PRN IM .VAGINAL BLEEDING; Start 09/15/18 at 10:30 Carboprost Tromethamine (Hemabate) 250 mcg ONCE PRN IM .VAGINAL BLEEDING; Start 09/15/18 at 10:30 Misoprostol (Cytotec) 1,000 mcg ONCE PRN FL .VAGINAL BLEEDING; Start 09/15/18 at 10:30 Labetalol HCl (Normodyne) 200 mg BID PO Last administered on 09/16/18 09:07; Admin Dose 200 MG; Start 09/15/18 at 21:00 Oxycodone/Aspirin (Percodan) 1 tab Q4H PRN PO PAIN LEVEL 1-5 Last administered on 09/15/18 16:01; Admin Dose 1 TAB; Start 09/15/18 at 10:30 Diagnostic Test (Pha) (Accu-Chek) 1 ea FBSPP XX Last administered on 09/16/18at 11:50; Admin Dose 1 EA; Start 09/15/18 at 13:50 Metformin HCl (Glucophage) 1,000 mg BID WITH MEALS PO Last administered on 5/14/19at 09:07; Admin Dose 1,000 MG; Start 09/15/18 at 16:30 Miscellaneous Information 1 ea NOTE XX ; Start 09/15/18 at 13:30 Glucose (Glutose) 15 gm Q15M PRN PO DECREASED GLUCOSE; Start 09/15/18 at 13:30 Glucose (Glutose) 22.5 gm Q15M PRN PO DECREASED GLUCOSE; Start 09/15/18 at 13:30 Dextrose (D50w Syringe) 25 ml Q15M PRN IV DECREASED GLUCOSE; Start 09/15/18 at 13:30 Dextrose (D50w Syringe) 50 ml Q15M PRN IV DECREASED GLUCOSE; Start 09/15/18 at 13:30 Glucagon (Glucagen) 1 mg Q15M PRN IM DECREASED GLUCOSE; Start 09/15/18 at 13:30 Glucose (Glutose) 15 gm Q15M PRN BUCCAL DECREASED GLUCOSE; Start 09/15/18 at 13:30 Lactated Ringer's 1,000 ml @ 75 mls/hr [id number] IV Last administered on 09/16/18at 02:11; Admin Dose 75 MLS/HR; Start 09/16/18 at 02:00 MIKI ALMEIDA MD September 16, 2018 16:14
[2018-09-17] MEDS: LACTATED RINGER'S 1,000 ML IV SCH (04:40)
[2018-09-17] MEDS: IBUPROFEN 600 MG TAB PO SCH ×3 (06:05→12:26)
[2018-09-17] MEDS: ACCU-CHEK XX SCH ×3 (07:30→13:50)
[2018-09-17 08:30] VITALS: BP 134/78; PULSE 69; RESP 20
[2018-09-17] MEDS: LABETALOL 200 MG TAB PO SCH (08:38)
[2018-09-17] MEDS: metFORMIN 500 MG TAB PO SCH (08:39)
[2018-09-17] MEDS: SENNA/DOCUSATE NA (8.6MG/50MG) TAB PO SCH (08:39)
[2018-09-17] MEDS ORDERED: DIPHTH/TET/ACEL PERTUSS (ADULT) 0.5 ML VIAL IM* ONE (09:00)
[2018-09-17 15:00] VITALS: BP 112/71; PULSE 77; RESP 20
--- NOTE | 2018-09-18 16:17 | DELSUM ---
Delivery Summary A-C Datetime Report Generated by CPN: 09/18/2018 16:17 DELIVERY PERSONNEL Floor Coverings Salesperson: Kashman, Fanta MATERNAL INFORMATION Delivery Anesthesia: Epidural Medications in Delivery: Pitocin 30 units in LR Delivery QBL (ml): 100 Placenta Cultured: No Maternal Complications: None LABOR SUMMARY EDC: 10/03/2018 00:00 No. Babies in Womb: 1 Attempted: No Labor Anesthesia: Epidural LABOR INFORMATION Reason for Induction: Not Applicable Onset of Labor: 09/14/2018 20:00 Complete Dilatation: 09/15/2018 05:18 Oxytocin: Augmentation Group B Beta Strep: Negative Antibiotics # of Doses: 0 Steroids Given: None Reason Steroids Not Administered: Not Applicable MEMBRANES Membranes Rupture Method: Spontaneous Rupture of Membranes: 09/15/2018 04:15 Length of Rupture (hr): 1.72 Amniotic Fluid Color: Clear Amniotic Fluid Amount: Moderate Amniotic Fluid Odor: Foul STAGES OF LABOR Stage 1 hr: 9 Stage 1 min: 18 Stage 2 hr: 0 Stage 2 min: 40 Stage 3 hr: 0 Stage 3 min: 5 Total Time in Labor hr: 10 Total Time in Labor min: 3 VAGINAL DELIVERY Episiotomy: Right Mediolateral Laceration Extension: N/A Laceration Type: None Laceration Repair: No Initial Vag Sponge Count: 10 Final Vag Sponge Count: 10 Initial Vag Sharps Count: 1 Final Vag Sharps Count: 4 Sponge Count Correct: Yes Sharps Count Correct: Yes BABY A INFORMATION Delivery Date/Time: 09/15/2018 05:58 Method of Delivery: Vaginal Born in Route : No : N/A Forceps: N/A Vacuum Extraction: N/A Shoulder Dystocia : N/A SHOULDER DYSTOCIA BABY A Infant Delivery Date/Time: 09/15/2018 05:58 PRESENTATION/POSITION BABY A Presentation: Cephalic Cephalic Presentation: Vertex Vertex Position: Left Occipital Posterior Breech Presentation: N/A PLACENTA INFORMATION BABY A Placenta Delivery Time : 09/15/2018 06:03 Placenta Method of Delivery: Expressed Placenta Status: Delivered SCORES BABY A Heart Rate 1 min: >100 bpm Resp Effort 1 min: Good Cry Reflex Irritability 1 min: Cough/Sneeze/Pulls Away Muscle Tone 1 min: Active Motion Color 1 min: Blue/Pale Resuscitation Effort 1 min: Tactile Stimulation SCORE 1 MIN: 8 Heart Rate 5 min: >100 bpm Resp Effort 5 min: Good Cry Reflex Irritability 5 min: Cough/Sneeze/Pulls Away Muscle Tone 5 min: Active Motion Color 5 min: Body Moody, Extremit Blue Resuscitation Effort 5 min: Tactile Stimulation SCORE 5 MIN: 9 INFANT INFORMATION BABY A Gestational Age at Delivery: 37.3 Gestational Status: Early Term- 37- 38.6 Weeks Infant Outcome : Liveborn Infant Condition : Stable Sex: Female IDENTIFICATION/MEDS BABY A ID Band Number: [id number] ID Band Location: Right Leg; Left Arm Sensor Applied: Yes Sensor Number: [id number] Sensor Location : Cord Clamp Vitamin K Given : Not Given Erythromycin Given: Not Given WEIGHT/LENGTH BABY A Birthweight (gm): 3540 Infant Weight (lb): 7 Weight (oz): 13 Length (in): 20.00 Length (cm): 50.80 CORD INFORMATION BABY A No. Cord Vessels: 3 Nuchal Cord : N/A Cord Blood Taken: No Infant Suction: Mouth; Nose ASSESSMENT BABY A Infant Complications: None Physical Findings at Delivery: Within Normal Limits Respirations: Appears Normal Adjuster Arbitrator/ALS Called : No Care By: MADISON NEVILLE Transferred To: Nursery
== END 2018-09-17 15:30 | disposition home or self-care (01) | DRG 807 ==
LOC: OBT 20:43 → L-D 20:44 → OBT 21:10 → PP1 09-15 12:03
PROVIDERS: ADMIT Obstetrics & Gynecology; ATTEND Obstetrics & Gynecology
PROC: 10E0XZZ Delivery of Products of Conception, External Approach (ICD-10-PCS; principal; 2018-09-15)
PROC: 0W8NXZZ Division of Female Perineum, External Approach (ICD-10-PCS; 2018-09-15)
PROC: 3E033VJ Introduction of Other Hormone into Peripheral Vein, Percutaneous Approach (ICD-10-PCS; 2018-09-15)
DX: O24.429 Gestational diabetes mellitus in childbirth, unspecified control (principal); Z37.0 Single live birth; Z3A.37 37 weeks gestation of pregnancy
CPT/HCPCS: 62322; 80053; 81001; 82947; 82962; 83735; 84560; 85025; 85384; 85610; 85730; 86592; 86850; 86900; 86901; 87340; G0463; J1815; J2590; J3010; J3475; J7120; J7121